=== PATIENT | female | born 1990 | race Hispanic/Latino ===

== ENCOUNTER 2024-06-04 14:57 | Emergency (ER) | payer BC ==
[~2024-06-04] VITALS: Ht 152.4 cm; Wt 90.7 kg
[2024-06-04 15:43] LABS: APPEARANCE,URINE CLEAR (CLEAR); BASOPHILS # (AUTO) 0.03 K/uL (0.00-0.20); BASOPHILS % (AUTO) 0.4 % (0.0-5.0); BILIRUBIN,URINE NEGATIVE (NEGATIVE); COLOR,URINE LIGHT-YELLOW (YELLOW); EOSINOPHILS # (AUTO) 0.13 K/uL (0.00-0.70); EOSINOPHILS % (AUTO) 1.7 % (0.0-8.0); GLUCOSE, URINE (UA) NEGATIVE (NEGATIVE); HEMATOCRIT 36.5 % (36-48); IMMATURE GRANULOCYTE ABSOLUTE 0.06 K/uL (0-1); KETONES,URINE NEGATIVE (NEGATIVE); LEUKOCYTE ESTERASE ,URINE NEGATIVE Leu/uL (NEGATIVE); LYMPHOCYTES # (AUTO) 2.1 K/uL (1.0-4.8); LYMPHOCYTES % (AUTO) 27.5 % (21.0-51.0); MEAN CORPUSCULAR HEMOGLOBIN 25.5 pg (27.0-33.0); MEAN CORPUSCULAR HGB CONC 31.2 g/dL (32.0-36.0); MEAN CORPUSCULAR VOLUME 81.7 fL (79-99); MONOCYTES # (AUTO) 0.5 K/uL (0.1-1.0); NEUTROPHILS # (AUTO) 4.8 K/uL (1.8-7.7); NEUTROPHILS % (AUTO) 63.6 % (40.0-77.0); NITRATE,URINE NEGATIVE (NEGATIVE); OCCULT BLOOD,URINE NEGATIVE (NEGATIVE); PH,URINE 5.5 (5.0-8.0); PLATELET COUNT (AUTO) 346 K/uL (130-400); PROTEIN,URINE NEGATIVE (NEGATIVE); RED BLOOD CELL COUNT(AUTO) 4.47 MIL/uL (4.00-5.50); RED CELL DISTRIBUTION WIDTH 17.8 % (11.0-15.5); UROBILINOGEN,URINE 0.2 mg/dL (0.2-1.0); WHITE BLOOD COUNT (AUTO) 7.5 K/uL (4.8-10.8)
[2024-06-04 15:50] LABS: BACTERIA,URINE RARE /HPF (None Seen); MUCUS,URINE RARE LPF (None Seen); RBC,URINE 0-1 /HPF (0-1); SQUAMOUS EPITHELIAL CELL,UR RARE /HPF (0-2)
[2024-06-04] MEDS: 0.9%NACL 1000ML 1,000 ML IV ONE (15:52)
[2024-06-04 15:53] LABS: CREATININE 0.7 mg/dL (0.5-1.0); POTASSIUM 3.4 mmol/L (3.5-5.1)
[2024-06-04] MEDS ORDERED: IOHEXOL-350 75 ML VIAL IV ONE (16:07)
[2024-06-04 18:07] VITALS: BP 145/76; PULSE 85; RESP 16; TEMP 98.6; O2SAT 99
== END 2024-06-04 19:16 | disposition home or self-care (01) ==
LOC: EDH 14:57
DX: R10.31 Right lower quadrant pain (principal); R63.0 Anorexia
CPT/HCPCS: 99285; 74177; 76830; 76856; 80048; 85025; 81001; 81025; 36415; Q9967